=== PATIENT | female | born 1995 | race Caucasian/White ===

== ENCOUNTER 2020-11-30 18:30 | Emergency (ER) | payer OTHER ==
[2020-11-30 19:02] LABS: BASOPHILS # (AUTO) 0.1 10^3/uL (0.0-0.1); EOSINOPHILS # (AUTO) 0.2 10^3/uL (0.0-0.7); EOSINOPHILS % (AUTO) 1.9 %; HGB - HEMOGLOBIN 13.2 g/dL (12.0-16.0); LYMPHOCYTES # (AUTO) 1.4 10^3/uL (1.5-3.5); MEAN CORPUSCULAR HEMOGLOBIN 30.8 pg (27.0-31.0); MEAN CORPUSCULAR HGB CONC 33.6 g/dL (32.0-36.0); MEAN CORPUSCULAR VOLUME 91.8 fL (81.0-99.0); MEAN PLATELET VOLUME 10.6 fL (7.9-10.8); MONOCYTES # (AUTO) 0.6 10^3/uL (0.0-1.0); MONOCYTES % (AUTO) 6.2 %; NEUTROPHILS # (AUTO) 6.6 10^3/uL (1.5-6.6); NEUTROPHILS % (AUTO) 74.8 %; PLT - PLATELET COUNT 285 10^3/uL (130-450); RED BLOOD COUNT 4.28 10^6/uL (4.20-5.40); WHITE BLOOD COUNT 8.9 x10^3/uL (4.8-10.8)
[2020-11-30 19:09] LABS: BILIRUBIN,URINE NEGATIVE (NEGATIVE); GLUCOSE, URINE (UA) NEGATIVE (NEGATIVE); KETONES,URINE (UA) NEGATIVE (NEGATIVE); LEUKOCYTE ESTERASE, URINE NEGATIVE (NEGATIVE); NITRITE,URINE NEGATIVE (NEGATIVE); OCCULT BLOOD,URINE NEGATIVE (NEGATIVE); PROTEIN,URINE NEGATIVE (NEGATIVE); UROBILINOGEN,URINE 0.2 (NORMAL) E.U./dL (NORMAL)
[2020-11-30 19:13] LABS: CLARITY,URINE CLEAR (CLEAR)
[2020-11-30 19:16] LABS: ALBUMIN 4.4 g/dL (3.2-5.5); ALBUMIN/GLOBULIN RATIO 1.4 (1.0-2.2); BILIRUBIN,TOTAL 0.7 mg/dL (0.2-1.0); CALCIUM 9.6 mg/dL (8.5-10.3); CREATININE 0.8 mg/dL (0.4-1.0); TOTAL PROTEIN 7.5 g/dL (6.7-8.2)
[2020-11-30 19:19] LABS: HCG UR QUAL NEGATIVE
[2020-11-30] MEDS ORDERED: KETOROLAC 30 MG/ML VIAL IVP STA (19:32)
[2020-11-30] MEDS ORDERED: predniSONE 20 MG TABLET PO STA (19:32)
--- NOTE | 2020-11-30 19:37 | ED Physician Documentation ---
History of Present Illness - Stated complaint Stated Complaint: BACK PX,BOWEL ISSUES W/BLEEDING - Chief complaint Chief Complaint: Abd Pain - History obtained from History obtained from: Patient - Additonal information Additional information: Patient comes emergency department chief complaint of low back pain. She states that she is approximately 1 year out from a 10 foot fall, during which she inju red her L5-S1 area. She states that initially, she was in a wheelchair but has been able to regain the ability to walk since. She states that she has flareups from time to time, the trigger of which she is unsure. She has been regularly followed by ignition specialist and for now, they have decided not to do surgery. Patient has been through physical therapy and has been on a variety of medicatio n regimens for her flareups. Patient states that the current episode began approximately 3 or 4 days ago. She began to notice increasing pain in her lower lumbosacral area, which felt just like prior episodes. She states she also began stooling frequently and has noticed some streaks of blood in her stool. She states that this is also a common occurrence if she is not on narcotics, which cause her to be constipated. She states that the frequent stooling is common with her back pain flareups. The patient denies fevers or chills. She states that after her initial injury, she had frequent episodes of being unable to fully control bowels or bladder, and that these have gotten progressively better over the course of the year. Patient denies any new numbness, tingling, or weakness in her lower extremities. She states that she is chronically a little weak in the left lower extremity. Patient states she generally, she uses topical CBD and smokes some, as well, and also walks with a cane when she is having a flareup. She states that she is very consistent about doing her back stretches every morning, and that the patient avoids certain movements or positions that make her pain worse. The patient states that the only reason she is in the ED is that [facility] primary care [facility], but the nurse she spoke with told her she should come to the ED to get checked out first. The patient states that this episode is not as bad as previous episodes and that she otherwise did not feel that she really needed to come to the ED. She states that she does not like the way that narcotics make her feel, because they cause her nausea and constipation. She states that really, the main thing that she would like is a dose of anti-inflammatories. She also states that steroid tapers have helped in the past. The patient is concerned because the nurse mentioned the potential for diverticulitis. Patient denies abdominal pain. She denies fevers or chills. No nausea or vomiting. No dysuria or hematuria. No other complaints at this time. Patient has no history of diverticulosis or diverticulitis that she knows of. Review of Systems Ten Systems: 10 systems reviewed and negative Constitutional: reports: Reviewed and negative. denies: Fever, Chills Eyes: reports: Reviewed and negative Ears: reports: Reviewed and negative Nose: reports: Reviewed and negative Throat: reports: Reviewed and negative Cardiac: reports: Reviewed and negative Respiratory: reports: Reviewed and negative GI: reports: Bloody / black stool. denies: Abdominal Pain, Nausea : reports: Reviewed and negative. denies: Dysuria, Hematuria Skin: reports: Reviewed and negative Musculoskeletal: reports: Back pain Neurologic: reports: Reviewed and negative Psychiatric: reports: Reviewed and negative Endocrine: reports: Reviewed and negative Immunocompromised: reports: Reviewed and negative PD PAST MEDICAL HISTORY - Present Medications Home Medications: Ambulatory Orders Medication Instructions Recorded Confirmed predniSONE [Prednisone 21-TAB dose 10 mg PO UD #1 each 11/30/20 pack] - Allergies Allergies/Adverse Reactions: Allergies Allergy/AdvReac Type Severity Reaction Status Date / Time No Known Drug Allergies Allergy Verified 11/30/20 18:42 PD ED PE NORMAL - Vitals Vital signs reviewed: Yes - General General: Alert and oriented X 3, No acute distress - HEENT HEENT: Atraumatic, PERRL, EOMI, Moist mucous membranes - Neck Neck: Supple, no meningeal sign - Cardiac Cardiac: RRR, No murmur, Strong equal pulses - Respiratory Respiratory: No respiratory distress, Clear bilaterally - Abdomen Abdomen: Soft, Non tender, Non distended - Back Back: No CVA TTP, Other (Tenderness over lumbosacral area.) - Derm Derm: Normal color, Warm and dry, No rash - Extremities Extremities: No deformity - Neuro Neuro: Alert and oriented X 3 - Psych Psych: Normal mood, Normal affect Results - Vitals Vitals: Vital Signs - 24 hr 11/30/20 18:35 Temperature 37.4 C Heart Rate 99 Respiratory 20 Rate Blood Pressure 131/84 H O2 Saturation 100 Oxygen O2 Source Room air - Labs Labs: Laboratory Tests 11/30/20 11/30/20 11/30/20 18:50 18:50 19:00 WBC 8.9 RBC 4.28 Hgb 13.2 Hct 39.3 MCV 91.8 MCH 30.8 MCHC 33.6 RDW 12.0 Plt Count 285 MPV 10.6 Neut # (Auto) 6.6 Lymph # (Auto) 1.4 L [place] # (Auto) 0.6 Eos # (Auto) 0.2 Baso # (Auto) 0.1 Absolute Nucleated RBC 0.00 Nucleated RBC % 0.0 Sodium 139 Potassium 3.9 Chloride 103 Carbon Dioxide 23 Anion Gap 13.0 BUN 14 Creatinine 0.8 Estimated GFR (MDRD) 88 L Glucose 101 H Calcium 9.6 Total Bilirubin 0.7 AST 17 ALT 16 Alkaline Phosphatase 54 Total Protein 7.5 Albumin 4.4 Globulin 3.1 Albumin/Globulin Ratio 1.4 Lipase 28 Urine Color YELLOW Urine Clarity CLEAR Urine pH 8.0 H Ur Specific [place] 1.015 Urine Protein NEGATIVE Urine Glucose (UA) NEGATIVE Urine Ketones NEGATIVE Urine Occult Blood NEGATIVE Urine Nitrite NEGATIVE Urine Bilirubin NEGATIVE Urine Urobilinogen 0.2 (NORMAL) Ur Leukocyte Esterase NEGATIVE Ur Microscopic Review NOT INDICATED Urine Culture Comments NOT INDICATED Urine HCG, Qual NEGATIVE PD MEDICAL DECISION MAKING - ED course Complexity details: reviewed results, re-evaluated patient, considered differential, d/w patient ED course: The patient overall was having a more minor flareup than she has had in the past, and what sounded like fairly light rectal bleeding. She was not near syncopal, and I did check laboratory studies which were unremarkable, both from the standpoint of her white blood cell and hemoglobin levels. The patient's urinalysis was also negative. The patient did desire to have an NSAID, she stated that naproxen or ibuprofen usually work well in conjunction with her topical CBD. I did give her a dose of Toradol IV here in the emergency department as well as a p.o. dose of prednisone. I have instructed her to take her Ibuprofen at home, as well as the prednisone taper that I have prescribed. We have discussed the need for follow-up with her primary care physician, and she will call when this weekend is over. We discussed the usual indications for return. Departure - Departure Disposition: Home, Self Care Clinical Impression: Acute exacerbation of chronic low back pain, Acute lower GI bleeding Condition: Stable Instructions: ED Spasm Back No Trauma, ED Hematochezia Stable Prescriptions: predniSONE [Prednisone 21-TAB dose pack] 10 mg PO UD #1 each Comments: Your labs look great. There is no evidence of a serious cause of your pain or bleeding, and you have not shown evidence of losing a significant amount of blood. Both your white blood cell count and your red blood cell indices are normal. Please call your primary doctor's office first thing on Tuesday to set up a follow-up appointment. Please take ibuprofen either 400 mg every 4 hours, 600 mg every 6 hours, or 800 mg every 8 hours, As needed for pain. Please also take the steroid taper that has been prescribed. You have been given your first dose of steroids here in the emergency department tonight, and do not need to take your next dose until tomorrow.
[2020-11-30 19:50] VITALS: BP 128/80
--- NOTE | 2020-12-01 15:19 | ED Physician Documentation ---
ED Addendum - Addendum Addendum: 12/01/20 15:18 Received a phone call from [facility] pharmacy. They would like to change from a prednisone Dosepak to a Medrol Dosepak. This appears to be reasonable based on review of the patient's chart. Prescription changed
== END 2020-11-30 19:50 | disposition home or self-care (01) ==
LOC: ED 18:30
DX: M54.5 Low back pain (principal); G89.29 Other chronic pain; K92.1 Melena
CPT/HCPCS: 36415; 80053; 81003; 81025; 83690; 85025; 96374; 99283; 99284; J7512; 81001; 87086

== ENCOUNTER 2022-02-09 10:14 | Emergency (ER) | payer OTHER ==
--- NOTE | 2022-02-09 10:55 | ED Physician Documentation ---
PD HPI ABD PAIN - Stated complaint Stated Complaint: FEMALE /GI - Chief complaint Chief Complaint: Abd Pain - History obtained from History obtained from: Patient - History of Present Illness Timing - onset: How many days ago (2) Timing - duration: Days (2) Timing - details: Abrupt onset, Still present Quality: Cramping, Other (decreased stool. She says she typically has loose stools chronically, 2-3 daily. Has not had BM for 2 days. No rectal fullness. some lower abd cramping. No nausea nor vomiting. No change in meds nor diet.) Location: Other (lower abd cramping at times.) Radiation: No: Chest, Lower back Improved by: No: Eating, Laying still Worsened by: No: Eating, Moving, Breathing Associated symptoms: Constipation (for 2 days). No: Fever, Nausea, Vomiting, Diarrhea, Melena, Hematochezia, Vaginal dc Similar symptoms before: Has not had sx before Review of Systems Constitutional: denies: Fever, Chills Nose: denies: Rhinorrhea / runny nose, Congestion Throat: denies: Sore throat Respiratory: denies: Cough GI: reports: Abdominal Pain, Constipation, Bloody / black stool. denies: Nausea, Vomiting, Diarrhea : denies: Dysuria, Frequency PD PAST MEDICAL HISTORY - Past Medical History Cardiovascular: None Respiratory: None Neuro: None Endocrine/Autoimmune: None GI: Chronic diarrhea Musculoskeletal: Chronic back pain (with MRI showing L5/S1 disc protrusion couple years ago. Underwent PT with still ongoing back pain with activity. NO surgery. Onset [facility].) - Present Medications Home Medications: Ambulatory Orders Medication Instructions Recorded Confirmed predniSONE [Prednisone 21-TAB dose 10 mg PO UD #1 each 11/30/20 pack] - Allergies Allergies/Adverse Reactions: Allergies Allergy/AdvReac Type Severity Reaction Status Date / Time No Known Drug Allergies Allergy Verified 11/30/20 18:42 PD ED PE NORMAL - Vitals Vital signs reviewed: Yes - General General: Alert and oriented X 3, No acute distress, Well developed/nourished - Neck Neck: Supple, no meningeal sign, No adenopathy - Cardiac Cardiac: RRR, No murmur - Respiratory Respiratory: Clear bilaterally - Abdomen Abdomen: Soft, Non tender, Non distended, No organomegaly. No: Normal bowel sounds (increased) - Female Female : Deferred - Rectal Rectal: Other (with relative in the room. normal perineal sensation. No rash nor sores. normal rectal tone. NO stool impaction in vault. Minimal 1 cm external hemorrhoid, not tender nor thrombosed. ) Results - Vitals Vitals: Vital Signs - 24 hr 02/09/22 02/09/22 10:36 11:17 Temperature 36.5 C Heart Rate 84 78 Respiratory 17 16 Rate Blood Pressure 133/79 H 129/74 O2 Saturation 99 100 Oxygen O2 Source Room air - Labs Labs: Laboratory Tests 02/09/22 02/09/22 02/09/22 10:43 10:51 11:20 WBC 7.4 RBC 3.94 L Hgb 12.7 Hct 37.0 MCV 93.9 MCH 32.2 H MCHC 34.3 RDW 11.9 L Plt Count 284 MPV 9.8 Neut # (Auto) 5.7 Lymph # (Auto) 1.1 L [place] # (Auto) 0.4 Eos # (Auto) 0.2 Baso # (Auto) 0.1 Absolute Nucleated RBC 0.00 Nucleated RBC % 0.0 Sodium 138 Potassium 3.9 Chloride 105 Carbon Dioxide 25 Anion Gap 8.0 BUN 15 Creatinine 0.7 Estimated GFR (MDRD) 101 Glucose 92 Calcium 9.0 Total Bilirubin 0.6 AST 18 ALT 15 Alkaline Phosphatase 46 Total Protein 7.2 Albumin 4.4 Globulin 2.8 Albumin/Globulin Ratio 1.6 Lipase 31 Urine Color YELLOW Urine Clarity CLEAR Urine pH 6.0 Ur Specific [place] 1.010 Urine Protein NEGATIVE Urine Glucose (UA) NEGATIVE Urine Ketones NEGATIVE Urine Occult Blood NEGATIVE Urine Nitrite NEGATIVE Urine Bilirubin NEGATIVE Urine Urobilinogen 0.2 (NORMAL) Ur Leukocyte Esterase NEGATIVE Ur Microscopic Review NOT INDICATED Urine Culture Comments NOT INDICATED Urine HCG, Qual NEGATIVE PD MEDICAL DECISION MAKING - ED course Complexity details: considered differential (she is usually soft stools. WEith chronic low back apin, she had been cautioned about numbness/ weakness/ incontinence. Has had just usual amount of foods, water.), d/w patient Departure - Departure Disposition: 01 Home, Self Care Clinical Impression: Decreased stooling, Low back pain Condition: Stable Record reviewed to determine appropriate education?: Yes Follow-Up: PAUL CAGE MD [Primary Care Provider] - Comments: Your difficulty or inability to use stool does not seem to relate to an effect from the spinal cord. Presume there is just some irregularity of the stool. I would suggest a fiber supplement such as Metamucil or fiber tablet twice daily for the next week and then once daily after that. Follow-up with your primary care and continue referral for GI regarding your typically loose stools. Return if still difficulty stooling over the next several days or you have abdominal bloating, bloody stools, belly pain vomiting or other concerns. Discharge Date/Time: 02/09/22 11:44
[2022-02-09 10:59] LABS: BASOPHILS # (AUTO) 0.1 10^3/uL (0.0-0.1); BASOPHILS % (AUTO) 0.9 %; EOSINOPHILS # (AUTO) 0.2 10^3/uL (0.0-0.7); HGB - HEMOGLOBIN 12.7 g/dL (12.0-16.0); LYMPHOCYTES # (AUTO) 1.1 10^3/uL (1.5-3.5); LYMPHOCYTES % (AUTO) 14.5 %; MEAN CORPUSCULAR HEMOGLOBIN 32.2 pg (27.0-31.0); MEAN CORPUSCULAR HGB CONC 34.3 g/dL (32.0-36.0); MEAN CORPUSCULAR VOLUME 93.9 fL (81.0-99.0); MEAN PLATELET VOLUME 9.8 fL (7.9-10.8); MONOCYTES # (AUTO) 0.4 10^3/uL (0.0-1.0); MONOCYTES % (AUTO) 5.7 %; NEUTROPHILS # (AUTO) 5.7 10^3/uL (1.5-6.6); NEUTROPHILS % (AUTO) 76.6 %; PLT - PLATELET COUNT 284 10^3/uL (130-450); RED BLOOD COUNT 3.94 10^6/uL (4.20-5.40); RED CELL DISTRIBUTION WIDTH 11.9 % (12.0-15.0); WHITE BLOOD COUNT 7.4 x10^3/uL (4.8-10.8)
[2022-02-09 11:18] VITALS: BP 129/74
[2022-02-09 11:28] LABS: BILIRUBIN,URINE NEGATIVE (NEGATIVE); GLUCOSE, URINE (UA) NEGATIVE (NEGATIVE); KETONES,URINE (UA) NEGATIVE (NEGATIVE); LEUKOCYTE ESTERASE, URINE NEGATIVE (NEGATIVE); NITRITE,URINE NEGATIVE (NEGATIVE); OCCULT BLOOD,URINE NEGATIVE (NEGATIVE); PROTEIN,URINE NEGATIVE (NEGATIVE); UROBILINOGEN,URINE 0.2 (NORMAL) E.U./dL (NORMAL)
[2022-02-09 11:30] LABS: CLARITY,URINE CLEAR (CLEAR); HCG UR QUAL NEGATIVE
[2022-02-09 11:44] LABS: ALBUMIN 4.4 g/dL (3.2-5.5); ALBUMIN/GLOBULIN RATIO 1.6 (1.0-2.2); BILIRUBIN,TOTAL 0.6 mg/dL (0.2-1.0); CREATININE 0.7 mg/dL (0.4-1.0); POTASSIUM 3.9 mmol/L (3.5-5.0); TOTAL PROTEIN 7.2 g/dL (6.7-8.2)
== END 2022-02-09 11:44 | disposition home or self-care (01) ==
LOC: ED 10:14
DX: K59.00 Constipation, unspecified (principal); M54.50 Low back pain, unspecified; G89.29 Other chronic pain
CPT/HCPCS: 36415; 80053; 81001; 81003; 81025; 83690; 85025; 87086; 99282; 99283